=== PATIENT | female | born 1980 | race Caucasian/White ===

== ENCOUNTER 2016-08-28 11:18 | Emergency (ER) ==
[2016-08-28 11:26] VITALS: BP 175/114; TEMP 99.5; BMI 24.6
[2016-08-28 11:39] LABS: BASOPHILS % (AUTO) 0.4 % (0.0-3.0); EOSINOPHILS % (AUTO) 0.4 % (0.0-7.0); HEMATOCRIT 40.5 % (37.0-47.0); HEMOGLOBIN 13.5 g/dl (12.0-16.0); IMMATURE GRANULOCYTE % (AUTO) 0.1 % (0.0-5.0); LYMPHOCYTES # (AUTO) 2.8 K/uL (0.60-3.4); LYMPHOCYTES % (AUTO) 39.9 (10.0-50.0); MEAN CORPUSCULAR HEMOGLOBIN 26.5 pg (27.0-31.0); MEAN CORPUSCULAR HGB CONC 33.3 (31.8-35.4); MEAN CORPUSCULAR VOLUME 79.4 fl (81.0-99.0); MONOCYTES # (AUTO) 0.6 K/uL (0.4-2.0); MONOCYTES % (AUTO) 8.9 (0-10); NEUTROPHILS # (AUTO) 3.5 K/ul (2.0-6.9); NEUTROPHILS % (AUTO) 50.3; PLATELET COUNT 238 10^3/uL (140-440); WHITE BLOOD COUNT 7.05 K/ul (4.6-10.2)
[2016-08-28] MEDS ORDERED: LOPRESSOR IVP STA (11:50)
[2016-08-28 12:27] LABS: ALANINE AMINOTRANSFERASE 31 U/L (12-78); ALBUMIN 3.7 g/dL (3.4-5.0); ALKALINE PHOSPHATASE 132 U/L (42-98); ANION GAP 16.4; ASPARTATE AMINO TRANSFERASE 26 U/L (15-37); BILIRUBIN,TOTAL 0.27 mg/dL (0.00-1.20); BLOOD UREA NITROGEN 10 mg/dL (7-18); BUN/CREATININE RATIO 17.24; CALCIUM 9.7 mg/dL (8.2-10.2); CARBON DIOXIDE 21 mmol/L (21-32); CHLORIDE 106 mmol/L (98-107); CREATINE KINASE 36 U/L; CREATININE 0.58 mg/dL (0.60-1.30); GLUCOSE 106 mg/dL (70-110); POTASSIUM 4.4 mmol/L (3.5-5.10); SODIUM 139 mmol/L (136-145); TOTAL PROTEIN 7.4 g/dL (6.4-8.2)
[2016-08-28 12:35] LABS: COCAIN SCREEN,URINE NEGATIVE (NEGATIVE)
--- NOTE | 2016-08-28 13:13 | DI ---
EXAM: CHEST FRONTAL VIEW HISTORY: Chest pain. COMPARISON: 06/03/2010 FINDINGS: Heart size and mediastinum remain within normal limits. Lungs are free of infiltrate. No consolidation or pleural fluid. There is no pneumothorax or acute bony finding. IMPRESSION: Findings within normal limits.
--- NOTE | 2016-08-28 13:38 | ED.PDOC ---
General ED Provider: Dr. DYANA PEREZ JR Chief Complaint: Palpitations Stated Complaint: started getting nauseated and bad headache. pt was seen at dr paris office today and sent to er. thought she was having problems with high blood pressure. when she got to the office her heart rate was 150-160 and bp was high. states she has had a lot of stress lately. [ End ]since aug 20 99.5 145 24 98% 175/114. cce Time Seen by Physician: 11:25 Mode of Arrival: Wheelchair Information Source: Patient Exam Limitations: No limitations Primary Care Provider: MAURISIO ARITA Nursing and Triage Documentation Reviewed and Agree: No Review of Systems - Review Of Systems Constitutional: Reports: Malaise, Weakness Eyes: Reports: No symptoms Ears, Nose, Mouth, Throat: Reports: No symptoms Cardiac: Reports: Palpitations GI: Reports: Nausea : Reports: No symptoms Musculoskeletal: Reports: No symptoms Skin: Reports: No symptoms Neurological: Reports: Headache Endocrine: Reports: Unexplained weight gain (35 pounds aug 2015 has gained back 6 pounds) All Other Systems: Other Past Medical History - Past Medical History Previously Healthy: Yes Endocrine: Reports: None Cardiovascular: Reports: None Respiratory: Reports: None Hematological: Reports: None Gastrointestinal: Reports: None Genitourinary: Reports: None Neuro/Psych: Reports: None Musculoskeletal: Reports: None Cancer: Reports: None Last Menstrual Period: last week of july - Surgical History General Surgical History: Reports: Cholecystectomy - Family History Family History: Reports: Unknown - Social History Smoking Status: Former smoker Hx Substance Use: No Alcohol Screening: None Physical Exam - Physical Exam Appearance: Ill-appearing, Thin Ill-appearing: Mild Eyes: J CARLOS, EOMI, Conjunctiva clear ENT: Ears normal, Nose normal, Oropharynx normal Neck: Supple Respiratory: Airway patent, Breath sounds clear, Breath sounds equal, Respirations nonlabored Cardiovascular: Tachycardia GI/: Soft, Nontender, No masses, Bowel sounds normal, No Organomegaly Musculoskeletal: Normal strength, ROM intact, No edema, No calf tenderness Skin: Warm, Dry, Normal color Neurological: Sensation intact, Motor intact, Reflexes intact, Cranial nerves intact, Alert, Oriented Psychiatric: Affect appropriate, Mood appropriate, Anxious Critical Care Note - Critical Care Note Total Time (mins): 15 Course - Course Hematology/Chemistry: 08/28/16 11:30 08/28/16 11:30 Orders, Labs, Meds: Lab Review 08/28/16 08/28/16 11:30 11:35 WBC 7.05 RBC 5.10 Hgb 13.5 Hct 40.5 MCV 79.4 L MCH 26.5 L MCHC 33.3 RDW Coeff of Lanre 12.5 Plt Count 238 Immature Gran % (Auto) 0.1 Neut % (Auto) 50.3 Lymph % (Auto) 39.9 Christian % (Auto) 8.9 Eos % (Auto) 0.4 Baso % (Auto) 0.4 Immature Gran # (Auto) 0.0 Neut # 3.5 Lymph # 2.8 Christian # 0.6 Eos # 0.0 Baso # 0.0 D-Dimer 189.50 H Sodium 139 Potassium 4.4 Chloride 106 Carbon Dioxide 21 Anion Gap 16.4 BUN 10 Creatinine 0.58 L Estimated GFR (MDRD) 116.00 BUN/Creatinine Ratio 17.24 Glucose 106 Calcium 9.7 Total Bilirubin 0.27 AST 26 ALT 31 Alkaline Phosphatase 132 H Total Creatine Kinase 36 Troponin I < 0.0100 B-Natriuretic Peptide 68 Total Protein 7.4 Albumin 3.7 Globulin 3.7 Albumin/Globulin Ratio 1.00 TSH < 0.003 L Free T4 2.48 H Urine Opiates Screen Negative Ur Oxycodone Screen Negative Urine Methadone Screen Negative Ur Propoxyphene Screen Negative Ur Barbiturates Screen Negative U Tricyclic Antidepress Negative Ur Phencyclidine Scrn Negative Ur Amphetamine Screen Negative U Methamphetamines Scrn Negative U Benzodiazepines Scrn Negative Urine Cocaine Screen Negative U Cannabinoids Screen Negative Orders Category Date Time Status EKG-(ED ONLY) Stat CARDIO 08/28/16 11:28 Completed ED APPLY O2 .ONCE EMERGENCY 08/28/16 11:28 Active ED FINANCIAL CONTROLLER APPLIED .ONCE EMERGENCY 08/28/16 11:28 Active ED IV/MEDIPORT/POWERPORT .ONCE EMERGENCY 08/28/16 11:28 Active B-TYPE NATRIURETIC PEPTIDE Stat LAB 08/28/16 11:30 Completed CBC W/ AUTO DIFF Stat LAB 08/28/16 11:30 Completed COMPREHENSIVE METABOLIC PANEL Stat LAB 08/28/16 11:30 Completed CREATINE KINASE Stat LAB 08/28/16 11:30 Completed D-DIMER Stat LAB 08/28/16 11:30 Completed DRUG SCREEN, URINE, RAPID Stat LAB 08/28/16 11:35 Completed FREE T4 (FREE THYROXINE) Stat LAB 08/28/16 11:30 Completed THYROID PANEL WITH TSH Stat LAB 08/28/16 11:30 Received THYROID STIMULATING HORMONE Stat LAB 08/28/16 11:30 Completed TROPONIN I Stat LAB 08/28/16 11:30 Completed 0.9 % Sodium Chloride [Saline Flush] MEDS 08/28/16 11:28 Active 1 syr IVF PRN PRN Metoprolol Tartrate [Lopressor] MEDS 08/28/16 11:50 Discontinued 2.5 mg IVP ONCE STA CHEST, 1V AP ONLY Stat RADS 08/28/16 11:28 Completed Medications Generic Name Dose Route Start Last Admin Trade Name Freq PRN Reason Stop Dose Admin Sodium Chloride 1 syr 08/28/16 11:28 08/28/16 12:15 Saline Flush IVF 1 syr PRN PRN Administration To flush IV Discontinued Medications Generic Name Dose Route Start Last Admin Trade Name Freq PRN Reason Stop Dose Admin Metoprolol Tartrate 2.5 mg 08/28/16 11:50 08/28/16 12:13 Lopressor IVP 08/28/16 11:51 2.5 mg ONCE STA Administration Vital Signs: Temp Pulse Resp BP Pulse Ox 08/28/16 11:20 99.5 F 145 H 24 175/114 H 98 STEFANIE Risk Score STEFANIE Risk Score: Risk Score Odds of by 30D 0 0.1 (0.1-0.2) 1 0.3 (0.2-0.3) 2 0.4 (0.3-0.5) 3 0.7 (0.6-0.9) 4 1.2 (1.0-1.5) 5 2.2 (1.9-2.6) 6 3.0 (2.5-3.6) 7 4.8 (3.8-6.1) Departure - Departure Time of Disposition: 14:28 Disposition: HOME SELF-CARE Discharge Problem: Thyrotoxic crisis Instructions: Hyperthyroidism (ED) Condition: Good Pt referred to PMD for follow-up: Yes Additional Instructions: follow up with Dr Arita tomorrow for referrral inderal 10 mg four times a day to control heart rate Prescriptions: Propranolol HCl [Inderal] 10 mg PO QID #120 tablet Allergies/Adverse Reactions: Allergies Penicillins Adverse Reaction (Verified 08/28/16 11:26) Home Medications: Ambulatory Orders Control Pill 1 tab PO DAILY 08/28/16 Propranolol HCl [Inderal] 10 mg PO QID #120 tablet 08/28/16
[2016-08-29 07:20] LABS: T3 UPTAKE 40 % (24-39); THYROXINE (T4) 14.7 ug/dL (4.5-12.0); TSH < 0.006 uIU/mL (0.450-4.500)
== END 2016-08-28 14:57 | disposition home or self-care (01) ==
LOC: ED 11:18
DX: E05.91 Thyrotoxicosis, unspecified with thyrotoxic crisis or storm (principal); R00.0 Tachycardia, unspecified; R03.0 Elevated blood-pressure reading, without diagnosis of hypertension
CPT/HCPCS: 36415; 80053; 80306; 82550; 83880; 84436; 84439; 84443; 84479; 84484; 85025; 85379; 93005; 93010; 96374; 99283